=== PATIENT | female | born 2000 | race Caucasian/White ===

== ENCOUNTER 2023-06-10 12:00 | Emergency (ER) | payer BC, OTHER ==
[~2023-06-10] VITALS: Ht 167.6 cm; Wt 70.0 kg
[2023-06-10 12:28] LABS: BILIRUBIN, URINE NEGATIVE (negative); BLOOD/HGB, URINE NEGATIVE (Negative); KETONE, URINE NEGATIVE (Negative); LEUK ESTERASE, URINE NEGATIVE (negative); NITRITE, URINE NEGATIVE (negative)
[2023-06-10] MEDS ORDERED: WELLBUTRIN SR150 MG PO (12:35)
[2023-06-10 15:49] VITALS: BP 116/72
== END 2023-06-10 15:51 | disposition home or self-care (01) ==
LOC: ED 12:00
PROVIDERS: Emergency Medicine
DX: K59.00 Constipation, unspecified (principal); F41.9 Anxiety disorder, unspecified; Z79.899 Other long term (current) drug therapy
CPT/HCPCS: 74022; 81003; 84703; 99283-25